=== PATIENT | born 1980 | race Caucasian/White ===

== ENCOUNTER 2024-02-02 22:36 | Emergency (ER) | payer SELFPAY ==
[~2024-02-02] VITALS: Ht 175.3 cm; Wt 79.6 kg
[2024-02-02 22:43] VITALS: BP 132/85; PULSE 84; RESP 20; TEMP 98.6; O2SAT 96; O2SAT 98
[2024-02-03] MEDS ORDERED: CEPH500C2 MT
[2024-02-03] MEDS ORDERED: IBUP-2029 MT
[2024-02-03] MEDS ORDERED: SULF1TAB48 MT
== END 2024-02-03 00:10 | disposition home or self-care (01) ==
LOC: ER 22:56
DX: L02.412 Cutaneous abscess of left axilla (principal); J45.909 Unspecified asthma, uncomplicated; Z90.49 Acquired absence of other specified parts of digestive tract
CPT/HCPCS: 10160; 99283; 99284